=== PATIENT | male | born 1990 | race Two or more races ===

== ENCOUNTER 2017-12-05 15:24 | Emergency (ER) | payer BC ==
[~2017-12-05] VITALS: Ht 182.9 cm; Wt 108.9 kg
[2017-12-05 15:27] VITALS: BP 136/81
--- NOTE | 2017-12-05 16:02 | NUR ---
JONI received a call from [facility] regarding pt. requesting for referrals to detox and drug treatment programs. JONI met with pt. bedside. Pt. is alert and oriented x 4. Pt. 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 Pt. has not taken any pills for the past five days. Pt. has a psychiatrist who recommended inpatient treatment, however pt. is interested in outpatient treatment at this time. JONI gave pt. brochure to [facility] which is an intensive outpatient program and requested him to call Wendy at . JONI also gave pt. list of drug treatment programs which include [facility], [facility] etc. JONI encouraged pt. to seek treatment. No other social service needs are requested at this time. JONI is available, if needed.
== END 2017-12-05 16:51 | disposition home or self-care (01) ==
LOC: ER 15:26
DX: F13.10 Sedative, hypnotic or anxiolytic abuse, uncomplicated (principal); F11.10 Opioid abuse, uncomplicated; Z87.828 Personal history of other (healed) physical injury and trauma
CPT/HCPCS: 99283; A4606; Z7610